=== PATIENT | male | born 1965 | race African-American/Black ===

== ENCOUNTER 2019-04-02 07:44 | Day surgery (SDC) | payer OTHER ==
[2019-04-02] VITALS (12 sets, daily range): BP systolic 140–158; BP diastolic 80–92; PULSE 90–94; RESP 12–18; Ht 190.5 cm; Wt 82.8 kg
[~2019-04-02] VITALS: Ht 190.5 cm; Wt 82.8 kg
[~2019-04-02 07:44] MED LIST: GABA300C16 PO; HYDR-3671 PO; HYDR-4011 PO; HYDR25TA6 PO; LOSA100T15 PO; METO200T49 PO
[2019-04-02] MEDS ORDERED: EPINEPHrine 1 MG/ML 30 ML INJ ONE (08:58)
[2019-04-02] MEDS ORDERED: morphine SULFATE/PF (10 MG/10 ML) INJ ONE (08:58)
[2019-04-02] MEDS ORDERED: GLYCOPYRROLATE 0.4 MG INJ ONE (09:13)
[2019-04-02] MEDS ORDERED: ROCURONIUM 50 MG INJ ONE (09:13)
[2019-04-02] MEDS ORDERED: CEFAZOLIN 1 GM INJ ONE (09:13)
[2019-04-02] MEDS ORDERED: PROPOFOL 20 ML ONE (09:13)
[2019-04-02] MEDS ORDERED: NEOSTIGMINE 3 MG/3 ML SYRINGE ONE (09:13)
[2019-04-02] MEDS ORDERED: MIDAZOLAM 1 MG/ML 2 ML INJ ONE (09:14)
[2019-04-02] MEDS ORDERED: ONDANSETRON 4 MG INJ ONE (09:14)
[2019-04-02] MEDS ORDERED: FENTAnyl 50 MCG/ML VIAL ONE (09:14)
[2019-04-02] MEDS ORDERED: DEXAMETHASONE 4 MG/ML 5 ML INJ ONE (09:14)
[2019-04-02] MEDS ORDERED: MIDAZOLAM 1 MG/ML 2 ML INJ IV PRN (09:30)
[2019-04-02] MEDS ORDERED: OXYCODONE/ACETAMINOPHEN (5/325) TAB PO PRN ×2 (09:30)
[2019-04-02] MEDS ORDERED: MEPERIDINE 25 MG INJ IV PRN (09:30)
[2019-04-02] MEDS ORDERED: IPRATROPIUM (NEB) 0.5 MG/2.5 ML AMP HHN PRN (09:30)
[2019-04-02] MEDS ORDERED: HYDROmorphONE 1 MG/5 ML IV SYRINGE IV PRN ×3 (09:30)
[2019-04-02] MEDS ORDERED: EPHEDrine 25 MG/5 ML SYG IV PRN (09:30)
[2019-04-02] MEDS ORDERED: DIPHENHYDRAMINE 50 MG INJ IV PRN (09:30)
[2019-04-02] MEDS ORDERED: ONDANSETRON 4 MG INJ IV PRN (09:30)
[2019-04-02] MEDS ORDERED: hydrALAzine 20 MG INJ IV PRN (09:30)
[2019-04-02] MEDS ORDERED: ALBUTEROL 0.083% (NEB) 2.5 MG/3 ML AMP HHN PRN (09:30)
[2019-04-02] MEDS ORDERED: FENTAnyl 50 MCG/ML VIAL IV PRN ×3 (09:30)
[2019-04-02] MEDS ORDERED: TRIMETHOBENZAMIDE 100 MG/ML VIAL IM PRN (09:30)
[2019-04-02] MEDS ORDERED: LABETALOL HCL 20MG INJ IV PRN (09:30)
[2019-04-02] MEDS ORDERED: LABETALOL HCL 20MG INJ ONE (09:44)
[2019-04-02] MEDS ORDERED: hydrALAzine 20 MG INJ ONE (10:27)
[2019-04-02] MEDS ORDERED: HYDROCODONE/APAP (5/325) TAB PO PRN (10:30)
== END 2019-04-02 12:15 | disposition home or self-care (01) ==
LOC: SDS 07:44
PROVIDERS: ATTEND Internal Medicine Endocrinology, Diabetes & Metabolism
DX: M25.462 Effusion, left knee (principal); I10 Essential (primary) hypertension
CPT/HCPCS: 29870; 85610; 85730; 87070; 87075; 87102; 87116; C1713; J0360; J0690; J1100; J2250; J2274; J2405; J2710; J3010; Z7512; Z7610; J0171; J1170